=== PATIENT | male | born 1970 | race Caucasian/White ===

== ENCOUNTER 2024-02-07 15:10 | Inpatient (IN) | payer BC ==
[~2024-02-07] VITALS: Ht 188 cm; Wt 117.6 kg
[2024-02-07] VITALS (13 sets, daily range): BP systolic 143–175; BP diastolic 67–109; PULSE 59–88; RESP 11–22; O2SAT 96
[2024-02-07 15:36] LABS: APPEARANCE,URINE CLOUDY (CLEAR); BILIRUBIN,URINE NEGATIVE (NEGATIVE); COLOR,URINE LIGHT-YELLOW (YELLOW); GLUCOSE, URINE (UA) NEGATIVE (NEGATIVE); KETONES,URINE 5 mg/dL (NEGATIVE); LEUKOCYTE ESTERASE ,URINE NEGATIVE Leu/uL (NEGATIVE); NITRATE,URINE NEGATIVE (NEGATIVE); OCCULT BLOOD,URINE SMALL (NEGATIVE); PROTEIN,URINE 10 mg/dL (NEGATIVE); UROBILINOGEN,URINE 0.2 mg/dL (0.2-1.0)
[2024-02-07 15:38] LABS: ADD UA MICROSCOPIC YES
[2024-02-07 15:40] LABS: BACTERIA,URINE RARE /HPF (None Seen); MUCUS,URINE RARE LPF (None Seen); UNCLASSIFIED CRYSTAL 3 /HPF (None Seen); YEAST,URINE BUDDING FEW /HPF (None Seen)
[2024-02-07 15:52] LABS: INR <= 0.93 (0.85-1.15)
[2024-02-07] MEDS: HEPARIN 25,000 UNITS/250ML D5W 250 ML IV SCH (16:56)
[2024-02-07] MEDS: NITROGLYCERIN 50MG/D5W 250ML 1 BOT ONE (17:01)
[2024-02-07] MEDS ORDERED: MORPHINE 2 MG SYG IVP PRN (17:30)
[2024-02-07] MEDS ORDERED: ONDANSETRON 4MG INJ IVP PRN (17:30)
[2024-02-07 17:45] LABS: HEMOGLOBIN A1C 5.4 % (4.0-6.0)
[2024-02-07] MEDS ORDERED: POTASSIUM CHLORIDE 20MEQ/100ML 100 ML IV PRN (18:00)
[2024-02-07] MEDS: CARVEDILOL 6.25 MG TABLET PO SCH (18:46)
[2024-02-07] MEDS: LOSARTAN 25 MG TABLET PO SCH (18:47)
[2024-02-07 18:48] LABS: APPEARANCE,URINE CLEAR (CLEAR); BILIRUBIN,URINE NEGATIVE (NEGATIVE); COLOR,URINE LIGHT-YELLOW (YELLOW); GLUCOSE, URINE (UA) NEGATIVE (NEGATIVE); KETONES,URINE NEGATIVE (NEGATIVE); LEUKOCYTE ESTERASE ,URINE NEGATIVE Leu/uL (NEGATIVE); NITRATE,URINE NEGATIVE (NEGATIVE); PH,URINE 6.5 (5.0-8.0); PROTEIN,URINE NEGATIVE (NEGATIVE); UROBILINOGEN,URINE 0.2 mg/dL (0.2-1.0)
[2024-02-07] MEDS: CARVEDILOL 6.25 MG TABLET PO ONE (18:48)
[2024-02-07] MEDS: CARVEDILOL 12.5 MG TABLET PO ONE (18:48)
[2024-02-07 18:50] LABS: ADD UA MICROSCOPIC YES
[2024-02-07 19:00] LABS: WBC,URINE 0-1 /HPF (0-1)
[2024-02-07] MEDS: KCL 20 MEQ ERTAB PO PRN (19:39)
[2024-02-07 20:32] LABS: INR <= 0.93 (0.85-1.15); PROTHROMBIN TIME 10.9 SEC (9.6-11.6)
[2024-02-07 20:33] LABS: PARTIAL THROMBOPLASTIN TIME 37.6 SEC (26.3-35.5)
[2024-02-07 20:36] LABS: HEMOGLOBIN A1C 5.4 % (4.0-6.0)
[2024-02-07 20:42] LABS: CREATININE 0.9 mg/dL (0.5-1.3); MAGNESIUM 1.9 mg/dL (1.80-2.40); THYROID STIMULATING HORMONE 0.67 uIU/mL (0.36-3.74)
[2024-02-07] MEDS: ATORVASTATIN 40 MG TABLET PO SCH (21:32)
[2024-02-07] MEDS: FAMOTIDINE 20MG TAB PO SCH (21:32)
[2024-02-08] VITALS (74 sets, daily range): BP systolic 115–177; BP diastolic 47–101; PULSE 55–95; RESP 8–29; O2SAT 94–96
[2024-02-08 05:31] LABS: BASOPHILS # (AUTO) 0.04 K/uL (0.00-0.20); BASOPHILS % (AUTO) 0.4 % (0.0-5.0); EOSINOPHILS # (AUTO) 0.04 K/uL (0.00-0.70); EOSINOPHILS % (AUTO) 0.4 % (0.0-8.0); HEMATOCRIT 39.3 % (42-54); IMMATURE GRANULOCYTE ABSOLUTE 0.03 K/uL (0-1); LYMPHOCYTES # (AUTO) 1.6 K/uL (1.0-4.8); LYMPHOCYTES % (AUTO) 15.7 % (21.0-51.0); MEAN CORPUSCULAR HEMOGLOBIN 30.4 pg (27.0-33.0); MEAN CORPUSCULAR HGB CONC 34.9 g/dL (32.0-36.0); MEAN CORPUSCULAR VOLUME 87.3 fL (79-99); MONOCYTES # (AUTO) 0.9 K/uL (0.1-1.0); NEUTROPHILS # (AUTO) 7.5 K/uL (1.8-7.7); NEUTROPHILS % (AUTO) 74.2 % (40.0-77.0); PLATELET COUNT (AUTO) 180 K/uL (130-400); RED CELL DISTRIBUTION WIDTH 12.2 % (11.0-15.5); WHITE BLOOD COUNT (AUTO) 10.1 K/uL (4.8-10.8)
[2024-02-08 07:34] LABS: ALBUMIN 3.5 g/dL (3.5-5.0); BILIRUBIN,TOTAL 0.8 mg/dL (0.2-1.0); MAGNESIUM 1.9 mg/dL (1.80-2.40); POTASSIUM 3.2 mmol/L (3.5-5.1); TOTAL PROTEIN, SERUM 6.9 g/dL (6.0-8.3)
[2024-02-08] MEDS ORDERED: LOSARTAN 25 MG TABLET PO SCH (09:00)
[2024-02-08] MEDS: TICAGRELOR 90 MG TABLET PO SCH (09:00)
[2024-02-08] MEDS: ASPIRIN 81MG CHEW TAB PO SCH (09:00)
[2024-02-08] MEDS: LOSARTAN 50 MG TABLET PO SCH (10:32)
[2024-02-08] MEDS: AMLODIPINE 5 MG TAB PO SCH (14:46)
[2024-02-08] MEDS: ACETAMINOPHEN 500 MG TABLET PO PRN (15:16)
[2024-02-08] MEDS: LOSARTAN 50 MG TABLET PO ONE (17:24)
[2024-02-08] MEDS ORDERED: LOSARTAN 50 MG TABLET PO SCH (18:30)
[2024-02-09] VITALS (65 sets, daily range): BP systolic 96–183; BP diastolic 58–107; PULSE 65–87; RESP 4–74; TEMP 99.3; O2SAT 97–99
[2024-02-09] MEDS: NITROGLYCERIN 50MG/D5W 250ML 250 BOT IV SCH (02:33)
[2024-02-09] MEDS: LOSARTAN 50 MG TABLET PO SCH (08:38)
[2024-02-09] MEDS ORDERED: LIDOCAINE HCL 400MG/20ML VIAL ONE (09:06)
[2024-02-09] MEDS ORDERED: IOHEXOL-350 75 ML VIAL IV ONE ×2 (09:06→10:35)
[2024-02-09] MEDS ORDERED: HEPARIN 10,000 UNIT/10ML (1,000 UNIT/ML) VIAL ONE ×2 (09:07→10:24)
[2024-02-09] MEDS ORDERED: VERAPAMIL HCL 2.5 MG/ML VIAL ONE (09:07)
[2024-02-09] MEDS ORDERED: NITROGLYCERIN 50MG VIAL ONE (09:07)
[2024-02-09] MEDS ORDERED: MIDAZOLAM HCL 1 MG/ML 2ML VIAL ONE ×3 (09:39→11:17)
[2024-02-09] MEDS ORDERED: FENTANYL CITRATE PF 50 MCG/1 ML 2ML VIAL ONE (09:39)
[2024-02-09] MEDS ORDERED: TICAGRELOR 90 MG TABLET ONE (10:22)
[2024-02-09] MEDS ORDERED: MEPERIDINE-PF 25 MG/ML SYG ONE ×2 (11:17→11:40)
[2024-02-09] MEDS ORDERED: IOHEXOL-350 50ML VIAL IV ONE (11:44)
[2024-02-09] MEDS: 0.9%NACL 1000ML 1,000 ML IV SCH (12:00)
[2024-02-09] MEDS ORDERED: GLUCAGON 1MG KIT 1 MG ML IM PRN (12:00)
[2024-02-09] MEDS ORDERED: DEXTROSE 50%-WATER 50 ML DISP.SYRIN IV PRN (12:00)
[2024-02-09] MEDS: HYDROCHLOROTHIAZIDE 25 MG TABLET PO ONE (13:58)
[2024-02-09] MEDS: CARVEDILOL 6.25 MG TABLET PO ONE (14:00)
[2024-02-09 15:45] LABS: HEMATOCRIT 43.1 % (42-54); MEAN CORPUSCULAR HEMOGLOBIN 31.1 pg (27.0-33.0); MEAN CORPUSCULAR HGB CONC 34.8 g/dL (32.0-36.0); MEAN CORPUSCULAR VOLUME 89.2 fL (79-99); RED BLOOD CELL COUNT(AUTO) 4.83 MIL/uL (4.50-6.20); RED CELL DISTRIBUTION WIDTH 12.4 % (11.0-15.5); WHITE BLOOD COUNT (AUTO) 13.4 K/uL (4.8-10.8)
[2024-02-09 16:04] LABS: POTASSIUM 3.5 mmol/L (3.5-5.1)
[2024-02-09 16:15] LABS: ALBUMIN 3.7 g/dL (3.5-5.0); BILIRUBIN,TOTAL 1.1 mg/dL (0.2-1.0); MAGNESIUM 2.1 mg/dL (1.80-2.40); TOTAL PROTEIN, SERUM 7.8 g/dL (6.0-8.3)
[2024-02-09] MEDS ORDERED: HYDRALAZINE 20MG/ML VIAL IV PRN (17:30)
[2024-02-09] MEDS: ISOSORBIDE MONO 60MG SR TAB PO ONE (17:40)
[2024-02-09] MEDS: CARVEDILOL 6.25 MG TABLET PO SCH (21:52)
[2024-02-10] VITALS (15 sets, daily range): BP systolic 114–143; BP diastolic 64–82; PULSE 69–75; RESP 12–35; O2SAT 98
[2024-02-10 03:48] LABS: HEMATOCRIT 35.8 % (42-54); MEAN CORPUSCULAR HEMOGLOBIN 30.9 pg (27.0-33.0); MEAN CORPUSCULAR HGB CONC 35.5 g/dL (32.0-36.0); MEAN CORPUSCULAR VOLUME 87.1 fL (79-99); RED BLOOD CELL COUNT(AUTO) 4.11 MIL/uL (4.50-6.20); WHITE BLOOD COUNT (AUTO) 11.7 K/uL (4.8-10.8)
[2024-02-10 04:10] LABS: BILIRUBIN,TOTAL 1.4 mg/dL (0.2-1.0); CREATININE 1.2 mg/dL (0.5-1.3); MAGNESIUM 1.8 mg/dL (1.80-2.40); POTASSIUM 3.3 mmol/L (3.5-5.1); TOTAL PROTEIN, SERUM 6.6 g/dL (6.0-8.3)
[2024-02-10] MEDS: MAGNESIUM 2GM PREMIX 50ML 50 ML IV SCH (06:08)
[2024-02-10] MEDS: POTASSIUM CHLORIDE 10% ELIXIR 20 MEQ/15 ML UDCUP PO PRN (08:20)
[2024-02-10] MEDS: HYDROCHLOROTHIAZIDE 25 MG TABLET PO SCH (08:21)
[2024-02-10] MEDS ORDERED: AMLO-258 PO (09:35)
[2024-02-10] MEDS ORDERED: ASPI-1005 PO (09:35)
[2024-02-10] MEDS ORDERED: CARV12.580 PO (09:35)
[2024-02-10] MEDS ORDERED: NITR0.4T50 SL (09:35)
[2024-02-10] MEDS ORDERED: ATOR40TA69 PO (09:35)
[2024-02-10] MEDS ORDERED: LOSA-418 PO (09:35)
[2024-02-10] MEDS ORDERED: HYDR25TA PO (09:35)
[2024-02-10] MEDS ORDERED: TICA90TA PO (09:35)
== END 2024-02-10 12:00 | disposition home or self-care (01) | DRG 321 ==
LOC: EDH 15:10 → EDHIP 17:07 → 2CH 21:28 → 2AH 02-10 03:37
PROVIDERS: ADMIT Internal Medicine; ATTEND Internal Medicine
PROC: 027036Z Dilation of Coronary Artery, One Artery with Three Drug-eluting Intraluminal Devices, Percutaneous Approach (ICD-10-PCS; principal; 2024-02-09)
PROC: B241ZZ3 Ultrasonography of Multiple Coronary Arteries, Intravascular (ICD-10-PCS; 2024-02-09)
PROC: 4A023N7 Measurement of Cardiac Sampling and Pressure, Left Heart, Percutaneous Approach (ICD-10-PCS; 2024-02-09)
PROC: B2111ZZ Fluoroscopy of Multiple Coronary Arteries using Low Osmolar Contrast (ICD-10-PCS; 2024-02-09)
PROC: B2151ZZ Fluoroscopy of Left Heart using Low Osmolar Contrast (ICD-10-PCS; 2024-02-09)
DX: I25.10 Atherosclerotic heart disease of native coronary artery without angina pectoris (principal); I21.A1 Myocardial infarction type 2; I16.1 Hypertensive emergency; I10 Essential (primary) hypertension; E66.9 Obesity, unspecified; E78.5 Hyperlipidemia, unspecified; Z79.82 Long term (current) use of aspirin; Z79.899 Other long term (current) drug therapy; Z88.0 Allergy status to penicillin; Z82.49 Family history of ischemic heart disease and other diseases of the circulatory system; Z68.33 Body mass index [BMI] 33.0-33.9, adult
CPT/HCPCS: 36415; 71045; 80048; 80053; 80061; 81001; 82550; 82948; 83036; 83735; 84443; 84484; 85025; 85027; 85347; 85610; 85730; 86850; 86900; 86901; 92978; 92979; 93005; 93306; 93356; 93458; 99156; 99157; 99291; C1769; C9600; G0378; J1644; J2175; J2250; J2270; J3010; J3475; J3490; Q9967; A4600; A4649; C1725; C1753; C1874; C1887; C1894

== ENCOUNTER 2024-03-03 09:55 | Day surgery (SDC) | payer BC ==
[2024-03-02 14:59] VITALS: BP 121/77; PULSE 68; RESP 18
[2024-03-02 15:00] LABS: BASOPHILS # (AUTO) 0.05 K/uL (0.00-0.20); BASOPHILS % (AUTO) 0.7 % (0.0-5.0); EOSINOPHILS # (AUTO) 0.23 K/uL (0.00-0.70); EOSINOPHILS % (AUTO) 3.4 % (0.0-8.0); HEMATOCRIT 39.3 % (42-54); IMMATURE GRANULOCYTE ABSOLUTE 0.02 K/uL (0-1); LYMPHOCYTES % (AUTO) 30.1 % (21.0-51.0); MEAN CORPUSCULAR HEMOGLOBIN 30.2 pg (27.0-33.0); MEAN CORPUSCULAR HGB CONC 34.4 g/dL (32.0-36.0); MEAN CORPUSCULAR VOLUME 87.9 fL (79-99); MONOCYTES # (AUTO) 0.5 K/uL (0.1-1.0); MONOCYTES % (AUTO) 7.5 % (3.0-13.0); NEUTROPHILS # (AUTO) 3.9 K/uL (1.8-7.7); PLATELET COUNT (AUTO) 159 K/uL (130-400); RED BLOOD CELL COUNT(AUTO) 4.47 MIL/uL (4.50-6.20); RED CELL DISTRIBUTION WIDTH 12.3 % (11.0-15.5); WHITE BLOOD COUNT (AUTO) 6.8 K/uL (4.8-10.8)
[2024-03-02 15:03] LABS: ADD UA MICROSCOPIC YES; APPEARANCE,URINE CLEAR (CLEAR); BILIRUBIN,URINE NEGATIVE (NEGATIVE); COLOR,URINE COLORLESS (YELLOW); GLUCOSE, URINE (UA) NEGATIVE (NEGATIVE); KETONES,URINE NEGATIVE (NEGATIVE); LEUKOCYTE ESTERASE ,URINE NEGATIVE Leu/uL (NEGATIVE); NITRATE,URINE NEGATIVE (NEGATIVE); OCCULT BLOOD,URINE NEGATIVE (NEGATIVE); PROTEIN,URINE NEGATIVE (NEGATIVE); UROBILINOGEN,URINE 0.2 mg/dL (0.2-1.0)
[2024-03-02 15:05] LABS: RBC,URINE 0-1 /HPF (0-1); WBC,URINE 0-1 /HPF (0-1)
[2024-03-02 15:14] LABS: INR 1.04 (0.85-1.15); PROTHROMBIN TIME 11.2 SEC (9.6-11.6)
[2024-03-02 15:15] LABS: PARTIAL THROMBOPLASTIN TIME 25.7 SEC (26.3-35.5)
[2024-03-02 15:24] LABS: B-TYPE NATRIURETIC PEPTIDE 50 pg/mL (0-100)
[2024-03-02 15:26] LABS: CREATININE 1.3 mg/dL (0.5-1.3); POTASSIUM 3.8 mmol/L (3.5-5.1)
[2024-03-03] VITALS (9 sets, daily range): BP systolic 116–173; BP diastolic 84–111; PULSE 66–87; RESP 13–19
[~2024-03-03] VITALS: Ht 188 cm; Wt 115.9 kg
[~2024-03-03 09:55] MED LIST: AEC81 PO; AMLO-258 PO; ATOR40TA69 PO; CARV12.511 PO; HYDR25TA PO; LOSA50TA64 PO; NITR0.4T50 SL; TICA90TA PO
[2024-03-03] MEDS: 0.9%NACL 1000ML 1,000 ML IV ONE (11:09)
[2024-03-03] MEDS ORDERED: FENTANYL CITRATE PF 50 MCG/1 ML 2ML VIAL ONE (14:16)
[2024-03-03] MEDS ORDERED: LIDOCAINE HCL 400MG/20ML VIAL ONE (14:16)
[2024-03-03] MEDS ORDERED: IOHEXOL 350 MG/ML 100ML INFUS..BTL IV ONE (14:17)
[2024-03-03] MEDS ORDERED: NITROGLYCERIN 50MG VIAL ONE ×2 (14:17→14:42)
[2024-03-03] MEDS ORDERED: VERAPAMIL HCL 2.5 MG/ML VIAL ONE (14:17)
[2024-03-03] MEDS ORDERED: MIDAZOLAM HCL 1 MG/ML 2ML VIAL ONE ×3 (14:17→16:19)
[2024-03-03] MEDS ORDERED: HEPARIN 10,000 UNIT/10ML (1,000 UNIT/ML) VIAL ONE ×2 (14:17→16:01)
[2024-03-03] MEDS ORDERED: IOHEXOL-350 75 ML VIAL IV ONE (16:06)
[2024-03-03] MEDS ORDERED: MEPERIDINE-PF 25 MG/ML SYG ONE (16:19)
[2024-03-03] MEDS ORDERED: GLUCAGON 1MG KIT 1 MG ML IM PRN (17:30)
[2024-03-03] MEDS ORDERED: 0.9%NACL 1000ML 1,000 ML IV SCH (17:30)
[2024-03-03] MEDS ORDERED: DEXTROSE 50%-WATER 50 ML DISP.SYRIN IV PRN (17:30)
[2024-03-03] MEDS ORDERED: TICAGRELOR 90 MG TABLET PO SCH (21:00)
[2024-03-04] MEDS ORDERED: ASPIRIN 81MG CHEW TAB PO SCH (09:00)
== END 2024-03-03 20:50 | disposition home or self-care (01) ==
LOC: DAH 09:55
PROVIDERS: ATTEND Student in an Organized Health Care Education/Training Program
DX: R07.9 Chest pain, unspecified (principal); I25.10 Atherosclerotic heart disease of native coronary artery without angina pectoris; I25.82 Chronic total occlusion of coronary artery; Z79.82 Long term (current) use of aspirin; Z79.899 Other long term (current) drug therapy; Z88.0 Allergy status to penicillin; Z95.5 Presence of coronary angioplasty implant and graft
CPT/HCPCS: 80048; 83880; 85025; 85610; 85730; 81001; 36415; 71045; 93005; 92978; 92972; 85347 ×3; C9600; C1761; C1769 ×4; C1725 ×6; C1887 ×3; C1894; A4649; C1753; C1874 ×2; A4663 ×3; J3010; J3490 ×4; J7030; J1644 ×4; J2250 ×3; J2175; Q9967 ×2; A4215 ×2; A4657; A4222 ×2; A4216 ×2; Q9965 ×2; A4223 ×6; A4554; A4221 ×2; A4606 ×2; 92979; 96360; 96361; 99156; 99157